=== PATIENT | female | born 1960 ===

== ENCOUNTER → 2017-02-21 | Outpatient (REF) ==
[2017-02-22 16:09] LABS: THYROID STIMULATING HORMONE 3.84 uIU/mL (0.465-4.680)
== END ==
LOC: ZLAB.WCH 18:06
PROVIDERS: Internal Medicine
DX: Z01.89 Encounter for other specified special examinations (principal)

== ENCOUNTER → 2017-10-19 | Outpatient (REF) | LOC: ZLAB.WCH 17:56 | DX: Z01.89 Encounter for other specified special examinations (principal) ==